=== PATIENT | male | born 1985 | race Caucasian/White ===

== ENCOUNTER → 2017-10-14 | Outpatient (CLI) | payer OTHER ==
[~2017-10-14] MED LIST: FLEXERIL PO; FLOVENT HFA 4444 MCG INH; MOBIC15 MG PO; SINGULAIR 10 MG10 M1 PO; ZANAFLEX4 MG PO; ZANTAC 150MG T150 MG PO
--- NOTE | 2017-11-17 08:31 | PAINCON ---
[place] [address] PAIN MANAGEMENT CONSULTATION Name: JUAN OSORIO Room: [facility] Isbell#: [id number] Admission: 10/14/17 Attend Phys: Negin Blanc MD Discharge: Date of : 81 Report #: [id number] THIS REPORT FOR: //name// CC: Amira Blanc DATE OF SERVICE: 10/14/2017 FOLLOWUP COMPLAINT: The pain is improved and the numbness is getting better. So, another injection would be helpful. FOLLOWUP HISTORY: The patient is a very pleasant 31-year-old gentleman who has been followed in the pain clinic. As you know, he suffered from lumbar radiculopathy. He underwent an epidural steroid injection on two previous occasions. Each time, he has noticed some improvement in his pain and discomfort. He is having less numbness and tingling in the left leg. He has gleaned greater than 50% improvement since the last injection. He still has some numbness in his leg and perceives some weakness. He feels that that might be secondary to some muscle loss. He feels that the meloxicam is helpful. He is not having any problems with that, no GI complaints. PHYSICAL EXAMINATION: VITAL SIGNS: Blood pressure is 115/67, heart rate 61, respiratory rate 16, room air saturation is 97%, height 6 feet 2 inches, weight 203 pounds, BMI is 26 and temperature 98.7. HEENT: Negative. NECK: Nontender. CHEST: Clear to auscultation, nonlabored. HEART: Regular rate. ABDOMEN: Soft, nontender. BACK: No paralumbar tenderness or complaints. No step-off deformities. No paraspinal spasms. SI joints are unremarkable. EXTREMITIES: Judged to be 5/5 muscle strength in the right lower extremity, perception of 4/5 strength in the left lower extremity. Positive straight leg raise. L5-S1 area muscle weakness. IMPRESSION: 1. Lumbar radiculopathy involving the left L5-S1 dermatomal distribution. The patient has some perceptions of muscle weakness in this area and feels that the muscle bulk is somewhat diminished as opposed to the contralateral side. 2. History of gastroesophageal reflux. No problems with meloxicam, feels that this medication is beneficial. We will continue its use. 3. We discussed the risks and benefits of the procedure with the patient. They include, but are not limited to infection, increased muscle soreness, headache, bleeding, nerve trauma, spinal headache and the [place] [address] PAIN MANAGEMENT CONSULTATION Name: OSORIOJUAN [id number] Admission: 10/14/17 Attend Phys: Negin Blanc MD Discharge: Date of : 81 Report #: [id number] PROCEDURE NOTE: The patient was placed in the prone position. Fluoroscopy was used to identify the L5-S1 distribution. This area had been sterilely prepped with Betadine and infiltrated with 0.25% bupivacaine. A 17-gauge Tuohy with loss of resistance technique was used to gain access to the epidural space. There was no CSF, heme or paresthesia. Total of 80 mg Depo-Medrol, 40 mg triamcinolone and 2 mL of 0.25% bupivacaine was injected. The patient tolerated the procedure well. His back was then washed. A Band-Aid was then placed in the incision area. The patient was helped to his feet. There were no problems. He was then taken to the recovery room where he remained for an appropriate amount of time. He will follow up in the future as needed. The patient will continue to take meloxicam over the next month to two months. <ELECTRONICALLY SIGNED> By: Negin Blanc MD 11/17/17 0831 [id number] [id number]. Melecio Blanc MD /RAHEEL
== END | disposition home or self-care (01) ==
LOC: M.PC 10-07 08:40
DX: M54.16 Radiculopathy, lumbar region (principal); K21.9 Gastro-esophageal reflux disease without esophagitis; Z98.890 Other specified postprocedural states

== ENCOUNTER → 2018-08-30 | Outpatient (CLI) | payer OTHER ==
--- NOTE | 2018-08-31 15:35 | PAINCON ---
[address] [address] PAIN MANAGEMENT CONSULTATION Name: JUAN OSORIO Room: [facility] Isbell#: [id number] Admission: 08/30/18 Attend Phys: Negin Blanc MD Discharge: Date of : 83 Report #: [id number] THIS REPORT FOR: //name// CC: Amira Blanc DATE OF SERVICE: 08/30/2018 FOLLOWUP COMPLAINT: Low back pain and pain down the left leg. FOLLOWUP HISTORY: The patient is a 32-year-old gentleman, who has been followed in the pain clinic. He suffers from lumbar radiculopathy. He has undergone an epidural steroid injections in the past and gleaned benefits from these. At this juncture, he has noticeable recurrence of pain and discomfort involving his low back and radiation of pain down into his left leg. There is a numb component to it. He feels that the pain may be returning. This started in 06/2018. He underwent a series of epidural steroid injections and gleaned benefit from that. At this juncture, he feels that muscle relaxants could be beneficial as well as he was using meloxicam. He has ran out of this medication. He would like to have this medication renewed. He would like to proceed with physical therapy. He feels that this might be beneficial. He has noticed that when he awakens that he is quite stiff in the morning. He feels that the meloxicam was helpful. He did not have any GI complaints as a result of its use. PAST MEDICAL HISTORY: 1. Lumbar radiculopathy. 2. Gastroesophageal reflux. CURRENT MEDICATIONS: The patient is on Flovent 44 mcg 1 puff b.i.d., meloxicam 15 mg daily. The patient was taking Singulair, he is not taking it at this juncture. The patient is on Zantac. ALLERGIES: No known drug allergies. PAIN CLINIC ASSESSMENT AND PQRS: 1. History of osteoarthritis. The patient is not being treated for osteoarthritis or rheumatoid arthritis. 2. Pain score is 3/10. 3. Fall risk. The patient has not fallen in the last 3 months. 4. Blood thinner. The patient is not on a blood thinning medication. 5. History of hypertension. The patient is not being treated for hypertension. 6. Opioid greater than 6 weeks. The patient is not on opioid regimen. 7. Risk assessment tool, low for opioid use. 8. Functional assessment tool. 9. Recreational drug use. The patient [place] [address] PAIN MANAGEMENT CONSULTATION Name: JUAN OSORIO Room: [facility]#: [id number] Admission: 08/30/18 Attend Phys: Negin Blanc MD Discharge: Date of : 81 Report #: [id number] 10. Tobacco: The patient does not smoke. 11. Alcohol: The patient denies frequent use of alcoholic beverages. PHYSICAL EXAMINATION: GENERAL: The patient is a well-developed, well-nourished white male. He appears his stated age. He is alert and oriented x 3. His affect is appropriate. Speech is fluent. Height is 6 feet 2 inches, weight is 216 pounds, and BMI is 27.7. VITAL SIGNS: Blood pressure is 119/75, heart rate is 64, respiratory rate is 16, room air saturation is 100%, and temperature is 98.2. HEENT: Normocephalic, atraumatic. Extraocular eye muscles intact. Sclerae nonicteric. Mucous membranes are moist. NECK: Without adenopathy or JVD. Good range of motion. Upper extremity muscle strength is judged to be 5/5 for the major muscle groups. LUNGS: Clear to auscultation. ABDOMEN: Nontender. Bowel sounds are present. MUSCULOSKELETAL: Without significant scoliosis, kyphosis, or lordosis. Lower extremity, the patient has pain and discomfort in the lower portion of his back with pain that is radiating down into the L4-L5 and L5-S1 distribution. IMPRESSION: 1. Lumbar radiculopathy, L4-L5 as well as some L5-S1 distribution pain. 2. History of gastroesophageal reflux. RECOMMENDATIONS: We have discussed treatment options with the patient. At this juncture, we will consider an epidural steroid injection. Risks and benefits of the procedure were again reviewed. The patient felt that they were beneficial, but still continues to have some pain. He would like to try physical therapy. We will provide the patient with a script for physical therapy. He will return to the pain clinic at which time he will then undergo an epidural steroid injection. We would like to thank you for letting us to participate in his care. We hope he continues to improve. The patient does note some numbness, tingling, and sensory disk changes in the L4-L5 dermatomal distribution primarily involving the left leg. <ELECTRONICALLY SIGNED> By: Negin Blanc MD 08/31/18 1535 [id number] 0156N. Melecio Blanc MD /PMT
== END ==
LOC: M.PC 04:36
DX: M54.16 Radiculopathy, lumbar region (principal); K21.9 Gastro-esophageal reflux disease without esophagitis

== ENCOUNTER → 2018-09-22 | Outpatient (CLI) | payer OTHER ==
--- NOTE | 2018-09-23 17:20 | PAINCON ---
[address] [address] PAIN MANAGEMENT CONSULTATION Name: JUAN OSORIO Room: [facility] JIMMIELaura Isbell#: [id number] Admission: 09/22/18 Attend Phys: Negin Blanc MD Discharge: Date of : 81 Report #: [id number] THIS REPORT FOR: //name// CC: Amira Blanc DATE OF SERVICE: 09/22/2018 FOLLOWUP COMPLAINT: Return of low back pain down into the left leg. Having less muscle pain since I have changed my exercise. FOLLOWUP HISTORY: The patient is a 32-year-old gentleman, who has been followed in the pain clinic because of lumbar radiculopathy. He has undergone epidural steroid injection and gleaned benefits from these. He returns today indicating that he is having some continued pain in the low back area with pain radiating down into his left leg. After our last visit, he changed his exercise regimen. He feels that he has noted a change in some of the muscle discomfort in the lower portion of his back. He has not seen a physical therapist yet. He still has some numbness and tingling in the left leg. He notes a burning, cramping discomfort in the left foot at times. The patient was given a script for tizanidine. He has not taken this medication yet. He notes that the pain is worse with activity such as walking, standing, bending, and lifting. He notes that some pain improves with use of stretching, rest as well as cold packs. He has returned today with a desire to undergo an epidural steroid injection. He feels that, that could provide meaningful benefit. He has returned for an injection. MEDICATIONS: The patient is on Flovent 44 mcg 1 puff b.i.d., meloxicam 15 mg daily, Singulair has been used in the past, and Zantac. ALLERGIES: No known drug allergies. PAIN CLINIC ASSESSMENT AND PQRS: 1. History of osteoarthritis. The patient is not being treated for osteoarthritis or rheumatoid arthritis. 2. Pain score is 2/10. 3. Fall history. The patient has not fallen in the last 3 months. 4. Blood thinner. The patient is not on a blood thinning medication. 5. Hypertension. The patient is not being treated for hypertension. 6. Opiates greater than 6 weeks. The patient is not on an opioid regimen. 7. Risk assessment tool, low for opioid use. 8. Functional assessment tool. 9. Recreational drug use. The patient denies use of recreational drugs. 10. Tobacco: The patient does not smoke. 11. Alcohol: The patient denies frequent [place] [address] PAIN MANAGEMENT CONSULTATION Name: OSORIO,JUAN Room: [facility] Isbell#: [id number] Admission: 09/22/18 Attend Phys: Negin Blanc MD Discharge: Date of : 81 Report #: [id number] PHYSICAL EXAMINATION: GENERAL: The patient is a well-developed, well-nourished white male. He appears his stated age. He is alert and oriented x 3. His affect is appropriate. Speech is fluent. Height is 6 feet 2 inches, weight is 213 pounds, and BMI is 27.3. VITAL SIGNS: Blood pressure is 108/87, heart rate is 65, respiratory rate is 16, room air saturation is 98%, and temperature is 98.3. HEENT: Normocephalic, atraumatic. Extraocular eye muscles intact. The patient wears glasses. NECK: Without adenopathy or JVD. Good range of motion. Upper extremity muscle strength is judged to be 5/5 for the major muscle groups. LUNGS: Clear to auscultation. ABDOMEN: Nontender. Bowel sounds present. MUSCULOSKELETAL: Without significant scoliosis, kyphosis, or lordosis. Lower extremity, the patient has pain and discomfort, which is radiating in the L5-S1 dermatomal distribution down and most problematic in the left leg. IMPRESSION: 1. Lumbar radiculopathy, L5-S1, left side. 2. History of gastroesophageal reflux. 3. Respiratory history. RECOMMENDATIONS: We have discussed treatment options with the patient. Risks and benefits of an epidural steroid injection were discussed. They include but are not limited to infection, increased muscle soreness, headache, bleeding, worsening of pain, no improvement in pain, and the patient elects to proceed. The patient was taken to the procedure area. He was assisted in getting on the examination table. His back was sterilely prepped with a Betadine solution. A pillow was placed under his abdomen to bolster and improve positioning. A 17-gauge Tuohy with loss of resistance technique was used to gain access to the epidural space. There was no CSF, heme, or paresthesia. A total of 80 mg Depo-Medrol, 40 mg of triamcinolone, and 2 mL of 0.25% bupivacaine was injected. The patient tolerated the procedure well. There were no complications. He remained in the pain clinic for an appropriate amount of time. He will follow up in the future as needed. We would like to thank you for letting us to participate in his care. We hope he continues to improve. <ELECTRONICALLY SIGNED> By: Negin Blanc MD 09/23/18 1720 1735 0327N. Melecio Blanc MD /NOY
== END | disposition home or self-care (01) ==
LOC: M.PC 04:39
DX: M54.16 Radiculopathy, lumbar region (principal); G89.29 Other chronic pain; K21.9 Gastro-esophageal reflux disease without esophagitis; Z98.890 Other specified postprocedural states; Z79.899 Other long term (current) drug therapy

== ENCOUNTER → 2018-10-20 | Outpatient (CLI) | payer OTHER ==
--- NOTE | ~2018-10-20 | PAINCON ---
[address] [address] PAIN MANAGEMENT CONSULTATION Name: JUAN OSORIO Room: [facility] Veronika.#: [id number] Admission: Attend Phys: Negin Blanc MD Discharge: Date of : 81 Report #: [id number] THIS REPORT FOR: //name// CC: Amira Blanc DATE OF SERVICE: 10/20/2018 FOLLOWUP COMPLAINT: Here for an injection. The last one helped. FOLLOWUP HISTORY: The patient is a 32-year-old gentleman who has been seen in the Pain Clinic because of lumbar radiculopathy. He underwent an epidural steroid injection at the last visit. He did note some improvement in his pain. He has returned today for additional treatment. He is having less muscle tightness at this juncture. He is ____ that his numbness would continue to decrease as well as his pain has decreased 70%, but continues to find it somewhat problematic and would like to proceed with an epidural steroid injection today. He has had no complication from the last visit. Notes, his pain can be more problematic with activities, such as walking, standing, lifting and bending. Does continue to note some improvement with exercise, rest, cold, as well as stretching exercises. MEDICATIONS: Flovent 44 mcg 1 puff b.i.d., Meloxicam 15 mg, Singulair has been used in the past as well as Zantac. ALLERGIES: No known drug allergies. PAIN CLINIC ASSESSMENT/PQRS: 1. History of osteoarthritis. The patient is not being treated for osteoarthritis or rheumatoid arthritis. 2. Height is 6 feet 2 inches, weight 215 pounds, BMI is 27.6. 3. Vital signs: Blood pressure 118/82, heart rate 64, respiratory rate 16, room air saturation is 96%. Temperature 98.3. 4. Pain intensity, 2/10. 5. Fall history: The patient has not fallen in the last 3 months. 6. Blood thinner. The patient is not on a blood thinning medication. 7. Hypertension. The patient is not being treated for hypertension. 8. Opioids greater than 6 weeks. The patient receives his medications from one source. The patient is not on a regular opioid regimen. 9. Risk assessment tool, low for opioid use. 10. Functional assessment tool. 11. Recreational drug use. The patient denies use of recreational drugs. 12. Tobacco: The patient denies use of tobacco. 13. Alcohol: The patient denies use of alcoholic beverages. PHYSICAL EXAMINATION: [address] [place] [address] PAIN MANAGEMENT CONSULTATION Name: JUAN OSORIO Room: [facility].#: [id number] Admission: Attend Phys: Negin Blanc MD Discharge: Date of : 81 Report #: [id number] GENERAL: The patient is a well-developed, well-nourished white male appears his stated age. He is alert and oriented x 3. Affect is appropriate. Speech is fluent. HEENT: Normocephalic, atraumatic. Extraocular eye muscles intact. Sclerae nonicteric. Mucous membranes are moist. NECK: Without adenopathy or JVD. Good range of motion. The patient suffered motor strength is judged to be 5/5 for the major muscle groups without sensory changes. LUNGS: Clear to auscultation without rhonchi or rales. ABDOMEN: Nontender. Bowel sounds present. MUSCULOSKELETAL: Without significant scoliosis, kyphosis or lordosis. The patient has pain and discomfort in lower portion of his back with pain radiating down into the left leg with some numbness, tingling and discomfort in the L5 dermatomal distribution. IMPRESSION: 1. Lumbar radiculopathy, L5-S1, left side. 2. History of gastroesophageal reflux. 3. Respiratory history. RECOMMENDATIONS: We discussed treatment options with the patient. Risks and benefits of an epidural steroid injection were again reviewed. They include but are not limited to infection, worsening pain, no improvement in pain, nerve damage and paralysis. At this juncture, the patient feels that he is gleaned benefit from the last injections. He would like to proceed with another injection to note more benefit. He is aware of the possible complications that we have described before. He was then taken to the recovery room at the procedure area where he was then assisted in getting on the examination table. PROCEDURE NOTE: The patient was placed in the prone position. His back was sterilely prepped with a Betadine solution. Fluoroscopy using anterior, posterior as well as lateral viewing were implemented. A pillow had been placed under his abdomen to have proven bolster positioning. His back was sterilely prepped and a 25-gauge needle was then advanced using a left lateral midline approach. After this area had been infiltrated with 0.25% bupivacaine, a 17-gauge Tuohy with loss of resistance technique was used to gain access to the epidural space. A 17-gauge Tuohy was then moved into the left paraspinous area. Aspiration was negative. A total of 80 mg Depo-Medrol, 40 mg triamcinolone and 2 mL of 0.25% bupivacaine was injected. The patient tolerated the procedure well. There were no complications. A total of about 10 seconds fluoroscopy time was used. The patient will follow up in the future as needed. [address] [place] [address] PAIN MANAGEMENT CONSULTATION Name: JUAN OSORIO Room: [facility] M.R.#: [id number] Admission: Attend Phys: Negin Blanc MD Discharge: Date of : 81 Report #: [id number] We would like to thank you for letting us participate in his care. We hope he continues to improve. By: 1526 0137N. Melecio Blanc MD /nt
== END | disposition home or self-care (01) ==
LOC: M.PC 08:30
DX: M54.16 Radiculopathy, lumbar region (principal); G89.29 Other chronic pain; K21.9 Gastro-esophageal reflux disease without esophagitis; Z87.09 Personal history of other diseases of the respiratory system; Z79.899 Other long term (current) drug therapy; Z98.890 Other specified postprocedural states